=== PATIENT | female | born 1970 | race Hispanic/Latino ===

== ENCOUNTER 2018-03-02 16:40 | Emergency (ER) | payer OTHER | END 2018-03-02 17:06 | disposition left against medical advice (07) | LOC: EDH 16:40 | DX: Z53.21 Procedure and treatment not carried out due to patient leaving prior to being seen by health care provider (principal) ==

== ENCOUNTER 2018-06-08 18:16 | Emergency (ER) | payer OTHER | END 2018-06-08 19:01 | disposition home or self-care (01) | LOC: EDH 18:16 | DX: A60.00 Herpesviral infection of urogenital system, unspecified (principal); Z88.0 Allergy status to penicillin | CPT/HCPCS: 99281 ==

== ENCOUNTER 2019-03-26 00:41 | Emergency (ER) | payer OTHER ==
[2019-03-26] MEDS ORDERED: OCTYL 2-CYANOACRYLATE 1 EACH TP ONE (01:34)
== END 2019-03-26 02:11 | disposition home or self-care (01) ==
LOC: EDH 00:41
DX: S61.210A Laceration without foreign body of right index finger without damage to nail, initial encounter (principal); Z72.0 Tobacco use; Z88.0 Allergy status to penicillin; W45.8XXA Other foreign body or object entering through skin, initial encounter; Y93.89 Activity, other specified; Y92.098 Other place in other non-institutional residence as the place of occurrence of the external cause; Y99.8 Other external cause status
CPT/HCPCS: 12041